=== PATIENT | female | born 1955 | race Caucasian/White ===

== ENCOUNTER 2017-08-28 09:26 | Outpatient (CLI) | payer BC, OTHER ==
--- NOTE | 2017-08-28 09:45 | RAD ---
TWO VIEW CHEST: HISTORY: Dyspnea. FINDINGS: The lungs are clear. No infiltrate. Heart and mediastinum unremarkable. Osseous structures unremar kable. IMPRESSION: No evidence of acute process. POS: [facility]
== END 2017-08-28 09:27 | disposition home or self-care (01) ==
LOC: RAD 09:26
PROVIDERS: ATTEND Internal Medicine Critical Care Medicine
DX: R06.00 Dyspnea, unspecified (principal)
CPT/HCPCS: 71020

== ENCOUNTER 2018-02-04 12:36 | Outpatient (CLI) | payer BC, OTHER ==
--- NOTE | 2018-02-04 14:01 | RAD ---
TWO VIEW CHEST: INDICATIONS: Dyspnea. COMPARISON: 08/28/2017 FINDINGS: The lungs are clear. No effusion or pneumothorax. The cardiac silhouette is stable. IMPRESSION: Stable chest without focal consolidation. POS: [facility]
== END 2018-02-04 12:37 | disposition home or self-care (01) ==
LOC: RAD 12:36
PROVIDERS: ATTEND Internal Medicine Critical Care Medicine
DX: R06.00 Dyspnea, unspecified (principal)
CPT/HCPCS: 71046

== ENCOUNTER 2018-09-10 10:17 | Outpatient (CLI) | payer BC, OTHER ==
--- NOTE | 2018-09-10 11:22 | RAD ---
TWO VIEWS CHEST: Date: 09-10-18 Comparison: 02-04-18 History: Shortness of breath. FINDINGS: No pneumothorax, pleural fluid, focal consolidation, or alveolar edema. Heart and mediastinal contour s appear grossly unremarkable. IMPRESSION: No acute findings. POS: [facility]
== END 2018-09-10 10:18 | disposition home or self-care (01) ==
LOC: RAD 10:17
PROVIDERS: ATTEND Internal Medicine Critical Care Medicine
DX: R06.00 Dyspnea, unspecified (principal)
CPT/HCPCS: 71046

== ENCOUNTER 2019-04-23 14:28 | Outpatient (CLI) | payer BC, OTHER ==
--- NOTE | 2019-04-23 15:02 | ULT ---
RIGHT LOWER EXTREMITY VENOUS DOPPLER WITH SPECTRAL ANALYSIS AND COLOR FLOW EVALUATION: 04/23/19 HISTORY: Right calf pain. Patient states a girl fell on her right calf one week ago and she is having pain and swelling. History of right knee replacement one year ago. FINDINGS: Bui scale, color flow, Doppler evaluation, and spectral analysis of the right lower extremity venous structures is performed with 2D imaging. The right lower extremity common femoral, superficial femor al, popliteal, posterior tibial, most proximal greater saphenous and profunda femoral veins are image d. There is normal lumen compressibility, flow, and augmentation of the visualized deep venous structure s right lower extremity. IMPRESSION: No evidence of a DVT involving the visualized deep venous structures right lower extremity. POS: [facility]
== END 2019-04-23 14:29 | disposition home or self-care (01) ==
LOC: SCSULT 14:28
PROVIDERS: ATTEND Orthopaedic Surgery
DX: M79.661 Pain in right lower leg (principal)

== ENCOUNTER 2019-05-06 10:20 | Outpatient (CLI) | payer BC, OTHER ==
--- NOTE | 2019-05-06 13:46 | RAD ---
LUMBAR SPINE: Four views. 05/06/19 HISTORY: Lumbar radiculopathy. Lumbar vertebrae maintain height throughout. Degenerative changes are seen with loss of disc space at L3-4, L4-5, and L5-S1. Moderate osteophytes are seen at these levels. Facet hypertrophy is seen at t hese levels. Slight anterolisthesis of L3-4 which reduces slightly with extension. AP view shows mild lateral compression involving the right aspect of the L3 vertebra with osteophyte s seen laterally on the right at L3-4 and L4-5. IMPRESSION: There are degenerative changes of the lumbar spine as described. POS: [facility]
== END 2019-05-06 10:21 | disposition home or self-care (01) ==
LOC: TBSIIMAG 10:20
PROVIDERS: ATTEND Surgery
DX: M47.26 Other spondylosis with radiculopathy, lumbar region (principal)
CPT/HCPCS: 72120

== ENCOUNTER 2022-04-17 13:15 | Outpatient (CLI) | payer MEDICARE, BC, OTHER | END 2022-04-17 13:16 | disposition home or self-care (01) | LOC: RAD 13:15 | PROVIDERS: ATTEND Internal Medicine Critical Care Medicine | DX: R06.00 Dyspnea, unspecified (principal) | CPT/HCPCS: 71046 ==

== ENCOUNTER 2023-07-08 13:59 | Outpatient (CLI) | payer MEDICARE, BC, OTHER | END 2023-07-08 14:00 | disposition home or self-care (01) | LOC: RAD 13:59 | PROVIDERS: ATTEND Internal Medicine Critical Care Medicine | DX: R06.00 Dyspnea, unspecified (principal) | CPT/HCPCS: 71046 ==